=== PATIENT | female | born 1945 | race Caucasian/White ===

== ENCOUNTER 2017-12-28 16:20 | Emergency (ER) | payer MEDICARE, SELFPAY ==
[2017-12-28] VITALS (21 sets, daily range): BP systolic 126–158; BP diastolic 68–87; PULSE 72–89; RESP 11–23; TEMP 37.3; O2SAT 92–100
--- NOTE | 2017-12-28 16:33 | DI.CT_ITS ---
SYMPTOM/DIAGNOSIS: DIARRHEA, NAUSEA, ABD CRAMPING ABDOMEN AND PELVIC CT: CT scan of the abdomen and pelvis was performed following the uneventful administration of intravenous contrast material. There are no priors for comparison. Dependent atelectatic changes are seen in the lung bases. There is a 4 mm. non calcified pulmonary nodule in the left lower lobe. The liver is normal in size. There does appear to be diffuse decreased attenuation of the liver consistent with hepatic steatosis. No hepatic mass is seen. The portal and superior mesenteric veins are patent. There is a 2.7 cm. stone in the gallbladder. No biliary ductal dilatation is seen. The pancreas is unremarkable as are the adrenal glands. There are calcifications seen within the spleen likely reflecting prior granulomatous disease. Spleen is normal in size. The kidneys show normal and symmetric enhancement. No evidence of a solid renal mass or obstruction. The urinary bladder is intact. The reproductive organs are unremarkable as visualized. There is atherosclerosis of the abdominal aorta but no aneurysmal dilatation is seen. No significant abdominal or pelvic adenopathy, ascites or pneumoperitoneum is present. There is no evidence of inflammation. Note is made of a normal appendix. There is a moderate sized hiatal hernia present. No acute fracture is identified. Degenerative changes are seen in the spine. IMPRESSION: 1. No evidence of an acute abdomen. 2. 2.[address] findings to suggest acute cholecystitis. Follow up as clinically appropriate. 3. Moderate sized gastric hiatal hernia. 4. 4 mm. non calcified pulmonary nodule in the left lower lobe. Follow up as clinically appropriate.
--- NOTE | 2017-12-28 16:37 | W.ED.GENAD ---
Discharge Plan Disposition Patient Disposition: HOME Condition: Good Discharge Details Chief Complaint: Abd Prob Clinical Impression: Diarrhea ED Provider: Luis Batista Home Meds and New Rx's Prescriptions: New loperamide 2 mg capsule 2 mg PO Q4H Qty: 10 RF: 0 dicyclomine 10 mg capsule 10 mg PO QID Qty: 8 RF: 0 ondansetron HCl [Zofran] 4 mg tablet 4 mg PO TID PRN (Reason: nausea and vomiting) 5 Days RF: 0 No Action gabapentin 600 mg Tablet 600 mg PO DAILY RF: 0 calcium carbonate [Calcium 600] 600 mg calcium (1,500 mg) Tablet 1,200 mg PO DAILY RF: 0 paroxetine HCl [Paxil] 20 mg Tablet 20 mg PO DAILY RF: 0 simvastatin 20 mg Tablet 20 mg PO QPM RF: 0 omeprazole 20 mg Capsule,Delayed Release(Dr/Ec) 20 mg PO DAILY RF: 0 magnesium 250 mg Tablet 500 mg PO DAILY RF: 0 lskmelyj-xwc-N[place]-lycopen-lutein [Centrum Silver] 0.4-300-250 mg-mcg-mcg Tablet RF: 0 zoledronic kipx-dvdkulja-ivxja [Reclast] 5 mg/100 mL Piggyback See Label Instructions .ROUTE .COMPLEX RF: 0 melatonin 5 mg Tablet 5 mg PO DAILY RF: 0 Discharge Instructions Instructions: Acute Diarrhea (ED) Additional Instructions: Please take the antidiarrheal as directed. Please avoid any spicy or greasy foods. Please drink 8-10 cups of water per day. Please take the nausea medicines as needed. If you notice worsening of your symptoms, please return immediately for reevaluation. If you notice any worsening of your symptoms, or any new symptoms such as vomiting, diarrhea, fever, chills, shortness of breath, chest pain, numbness, weakness, or fainting , please return immediately to the emergency department for reevaluation. Please follow up with your primary care provider as soon as possible for reassessment and reevaluation. As always, it was a pleasure participating in your medical care today. Medical Decision Making This is a 71-year-old female who presents for diarrhea for the last 1-2 days with roughly 4-6 bowel movements per day. They have been nonbloody, she has no red flags of foreign travel recent antibiotic use or other sick contacts or hiking or traveling. Physical exam demonstrates mild crampiness, but no signs of an acute abdomen. Patient denies any red flags of blood in her stool. No vomiting, but notable nausea. Patient did have a near syncopal event when she stood up to go see paramedics earlier today. As of patient's age and symptoms we will get a CT scan to evaluate for any acute process. We will re-hydrate, reevaluate. EKG 16: 24 Rate 78, intervals normal, sinus rhythm, no ST elevations or depressions, no T wave inversions except for V1. Q waves noted in lead III and aVF. No other significant abnormalities 6:[address] scan has returned demonstrates no acute process. She does have a gallstone as well as a hiatal hernia but no other significant abnormalities. Laboratory workup demonstrates no bandemia or leukocytosis, patient's troponin, bilirubin, AST and ALT are within normal limits. Patient is feeling much better at this time. I do feel that she has a mild gastroenteritis as the cause of her symptoms. She feels significantly improved at this time. Feel that she can be safely discharged home with an antidiarrheal. We discussed red flags which to return and the patient understands. I have extensively reviewed the treatment plan and discharge instructions with the patient. I have addressed all patient concerns at this time. The patient was made aware of what symptoms to monitor for that would warrant a return to the emergency department. Discussed the plan with the patient, they demonstrate verbal understanding and agreement with our assessment and plan at this time. IMPRESSION: 1. Small to moderate sized gastric hiatal hernia. 2. Single large 2.7 cm gallstone visualized in the gallbladder. No evidence of acute cholecystitis. 3. Other chronic findings as above. Dictated and Authenticated by: Pan Gilbert MD. HPI General Date/Time Provider Initiated Documentation: 12/28/17 16:33. HPI Narrative: This is a 71-year-old female with a past medical history of fibromyalgia, tubal ligation to me, no other significant problems who presents today for evaluation of nausea and diarrhea. Patient states that for the last 1-2 days she has had nausea, diarrhea, with up to 6-7 loose bowel movements per day. Bowel movements are watery, nonbloody. She has had mild abdominal cramping and nausea but no severe abdominal pain. She denies any blood in her stools. She denies any recent foreign travel, antibiotic use, other sick contacts, or previous history of diarrhea. Last time the patient ate was last night. Patient has not taken any medications at home to improve her symptoms. She is only been eating normal food, no atypical food. Also of note the patient states that she has not been able to drink much, and when EMS arrived today she stood up quickly to go see them, however she got very lightheaded when this occurred. She had no complete syncopal episode, but she did have to sit down. She denied any headache, or other symptoms. Patient denies any other complications or symptoms. No other modifying factors. She denies any pertinent family history. Denies IV or illicit drug use. Related Data Home Medications Medication Instructions Recorded Confirmed calcium carbonate [Calcium 600] 1,200 mg PO DAILY 12/28/17 12/28/17 dicyclomine 10 mg PO QID #8 cap 12/28/17 gabapentin 600 mg PO DAILY 12/28/17 12/28/17 loperamide 2 mg PO Q4H #10 cap 12/28/17 magnesium 500 mg PO DAILY 12/28/17 12/28/17 melatonin 5 mg PO DAILY 12/28/17 12/28/17 egrlvsvg-xtj-AI-lycopen-lutein 12/28/17 [Centrum Silver] omeprazole 20 mg PO DAILY 12/28/17 12/28/17 ondansetron HCl [Zofran] 4 mg PO TID PRN 5 Days tab 12/28/17 paroxetine HCl [Paxil] 20 mg PO DAILY 12/28/17 12/28/17 simvastatin 20 mg PO QPM 12/28/17 12/28/17 zoledronic snrr-emhwcuoy-cubwq See Label Instructions .ROUTE 12/28/17 12/28/17 [Reclast] .COMPLEX Previous Rx's Medication Instructions Recorded dicyclomine 10 mg PO QID #8 cap 12/28/17 loperamide 2 mg PO Q4H #10 cap 12/28/17 ondansetron HCl [Zofran] 4 mg PO TID PRN 5 Days tab 12/28/17 Allergies Allergy/AdvReac Type Severity Reaction Status Date / Time No Known Allergies Allergy Unverified 12/28/17 16:25 General Stated Complaint: Abd Prob AMBAR: 3 Review of Systems Review of Systems All systems reviewed & are unremarkable except as noted in HPI and below PFSH Social History Smoking/Tobacco Use Status: Never Exam Narrative Exam Narrative: 1.Const: Well-nourished, Well-developed, appearing stated age 2.Eyes: PERRL, no conjunctival injection, and symmetrical lids. 3.ENT: Atraumatic external nose and ears. Notably dry MM. Neck: Symmetric, trachea midline, No thyromegaly. 4.CVS: +S1/S2, No murmurs or gallops. Peripheral pulses 2+ and equal in all extremities. Brisk capillary refill in all extremities. 5.RESP: Unlabored respiratory effort. Clear to auscultation bilaterally. No wheezes rales or rhonchi 6.GI: Soft, bowel sounds are present, no guarding or rebound, mild generalized crampiness throughout. No pain at McBurney's point, negative James sign. No signs of an acute abdomen. 7.MSK: Normocephalic/Atraumatic, Extremities w/o deformity or ttp No cyanosis or clubbing, Normal movement of all extremities 8.Skin: Warm, Dry. No rashes or lesions. 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 Sensation grossly intact, no focal neurologic deficits. 10.Psych: (AAO) x3. Appropriate mood and affect Course Vital Signs Temperature 37.3 C 12/28/17 16:21 Pulse 81 12/28/17 16:21 Respiratory Rate 14 12/28/17 16:21 Blood Pressure 158/83 H 12/28/17 16:21 Pulse Oximetry 97 12/28/17 16:21 Temperature 37.3 C 12/28/17 16:21 Temperature Source Temporal Artery Scan 12/28/17 16:21 Pulse 81 12/28/17 16:21 Respiratory Rate 14 12/28/17 16:21 Respiratory Effort 12/28/17 16:29 Blood Pressure 158/83 H 12/28/17 16:21 Blood Pressure Position Sitting 12/28/17 16:21 Pulse Oximetry 97 12/28/17 16:21 Oxygen Delivery Method Room Air 12/28/17 16:21 Oxygen Flow Rate 0 12/28/17 16:21 Pain Level 0 12/28/17 16:21 Comment 12/28/17 16:21
[2017-12-28] MEDS: Ondansetron 4 MG/2 ML VIAL IVP (16:43)
[2017-12-28] MEDS: Normal Saline 1,000 ML 1000 ML IV (16:43)
--- NOTE | 2017-12-28 16:43 | ED.GENADUL_ITS ---
Discharge Plan Disposition Patient Disposition: HOME Condition: Good Discharge Details Chief Complaint: Abd Prob Clinical Impression: Diarrhea ED Provider: Luis Batista Home Meds and New Rx's Prescriptions: New loperamide 2 mg capsule 2 mg PO Q4H Qty: 10 RF: 0 dicyclomine 10 mg capsule 10 mg PO QID Qty: 8 RF: 0 ondansetron HCl [Zofran] 4 mg tablet 4 mg PO TID PRN (Reason: nausea and vomiting) 5 Days RF: 0 No Action gabapentin 600 mg Tablet 600 mg PO DAILY RF: 0 calcium carbonate [Calcium 600] 600 mg calcium (1,500 mg) Tablet 1,200 mg PO DAILY RF: 0 paroxetine HCl [Paxil] 20 mg Tablet 20 mg PO DAILY RF: 0 simvastatin 20 mg Tablet 20 mg PO QPM RF: 0 omeprazole 20 mg Capsule,Delayed Release(Dr/Ec) 20 mg PO DAILY RF: 0 magnesium 250 mg Tablet 500 mg PO DAILY RF: 0 govfldoi-icy-XC-lycopen-lutein [Centrum Silver] 0.4-300-250 mg-mcg-mcg Tablet RF: 0 zoledronic smaq-pivvamlc-fjqmu [Reclast] 5 mg/100 mL Piggyback See Label Instructions .ROUTE .COMPLEX RF: 0 melatonin 5 mg Tablet 5 mg PO DAILY RF: 0 Discharge Instructions Instructions: Acute Diarrhea (ED) Additional Instructions: Please take the antidiarrheal as directed. Please avoid any spicy or greasy foods. Please drink 8-10 cups of water per day. Please take the nausea medicines as needed. If you notice worsening of your symptoms, please return immediately for reevaluation. If you notice any worsening of your symptoms, or any new symptoms such as vomiting, diarrhea, fever, chills, shortness of breath , chest pain, numbness, weakness, or fainting , please return immediately to the emergency department for reevaluation. Please follow up with your primary care provider as soon as possible for reassessment and reevaluation. As always, it was a pleasure participating in your medical care today. Medical Decision Making This is a 71-year-old female who presents for diarrhea for the last 1- 2 days with roughly 4-6 bowel movements per day. They have been nonbloody, she has no red flags of foreign travel recent antibiotic use or other sick contacts or hiking or traveling. Physical exam demonstrates mild crampiness, but no signs of an acute abdomen. Patient denies any red flags of blood in her stool. No vomiting, but notable nausea. Patient did have a near syncopal event when she stood up to go see paramedics earlier today. As of patient's age and symptoms we will get a CT scan to evaluate for any acute process. We will re- hydrate, reevaluate. EKG 16: 24 Rate 78, intervals normal, sinus rhythm, no ST elevations or depressions, no T wave inversions except for V1. Q waves noted in lead III and aVF. No other significant abnormalities 6:[address] scan has returned demonstrates no acute process. She does have a gallstone as well as a hiatal hernia but no other significant abnormalities. Laboratory workup demonstrates no bandemia or leukocytosis, patient's troponin, bilirubin, AST and ALT are within normal limits. Patient is feeling much better at this time. I do feel that she has a mild gastroenteritis as the cause of her symptoms. She feels significantly improved at this time. Feel that she can be safely discharged home with an antidiarrheal. We discussed red flags which to return and the patient understands. I have extensively reviewed the treatment plan and discharge instructions with the patient. I have addressed all patient concerns at this time. The patient was made aware of what symptoms to monitor for that would warrant a return to the emergency department. Discussed the plan with the patient, they demonstrate verbal understanding and agreement with our assessment and plan at this time. IMPRESSION: 1. Small to moderate sized gastric hiatal hernia. 2. Single large 2.7 cm gallstone visualized in the gallbladder. No evidence of acute cholecystitis. 3. Other chronic findings as above. Dictated and Authenticated by: Pan Gilbert MD. HPI General Date/Time Provider Initiated Documentation: 12/28/17 16:33 . HPI Narrative: This is a 71-year-old female with a past medical history of fibromyalgia, tubal ligation to me, no other significant problems who presents today for evaluation of nausea and diarrhea. Patient states that for the last 1-2 days she has had nausea, diarrhea, with up to 6-7 loose bowel movements per day. Bowel movements are watery, nonbloody. She has had mild abdominal cramping and nausea but no severe abdominal pain. She denies any blood in her stools. She denies any recent foreign travel, antibiotic use, other sick contacts, or previous history of diarrhea. Last time the patient ate was last night. Patient has not taken any medications at home to improve her symptoms. She is only been eating normal food, no atypical food. Also of note the patient states that she has not been able to drink much, and when EMS arrived today she stood up quickly to go see them, however she got very lightheaded when this occurred. She had no complete syncopal episode, but she did have to sit down. She denied any headache, or other symptoms. Patient denies any other complications or symptoms. No other modifying factors. She denies any pertinent family history. Denies IV or illicit drug use. Related Data Home Medications Medication Instructions Recorded Confirmed calcium carbonate [Calcium 600] 1,200 mg PO DAILY 12/28/17 12/28/17 dicyclomine 10 mg PO QID #8 cap 12/28/17 gabapentin 600 mg PO DAILY 12/28/17 12/28/17 loperamide 2 mg PO Q4H #10 cap 12/28/17 magnesium 500 mg PO DAILY 12/28/17 12/28/17 melatonin 5 mg PO DAILY 12/28/17 12/28/17 mnxgckbc-lws-PU-lycopen-lutein 12/28/17 [Centrum Silver] omeprazole 20 mg PO DAILY 12/28/17 12/28/17 ondansetron HCl [Zofran] 4 mg PO TID PRN 5 Days tab 12/28/17 paroxetine HCl [Paxil] 20 mg PO DAILY 12/28/17 12/28/17 simvastatin 20 mg PO QPM 12/28/17 12/28/17 zoledronic jrvf-rubmjrlr-xjhif See Label Instructions .ROUTE 12/28/17 12/28/17 [Reclast] .COMPLEX Previous Rx's Medication Instructions Recorded dicyclomine 10 mg PO QID #8 cap 12/28/17 loperamide 2 mg PO Q4H #10 cap 12/28/17 ondansetron HCl [Zofran] 4 mg PO TID PRN 5 Days tab 12/28/17 Allergies Allergy/AdvReac Type Severity Reaction Status Date / Time No Known Allergies Allergy Unverified 12/28/17 16:25 General Stated Complaint: Abd Prob AMBAR: 3 Review of Systems Review of Systems All systems reviewed & are unremarkable except as noted in HPI and below PFSH Social History Smoking/Tobacco Use Status: Never Exam Narrative Exam Narrative: 1.Const: Well-nourished, Well-developed, appearing stated age 2.Eyes: PERRL, no conjunctival injection, and symmetrical lids. 3.ENT: Atraumatic external nose and ears. Notably dry MM. Neck: Symmetric, trachea midline, No thyromegaly. 4.CVS: +S1/S2, No murmurs or gallops. Peripheral pulses 2+ and equal in all extremities. Brisk capillary refill in all extremities. 5.RESP: Unlabored respiratory effort. Clear to auscultation bilaterally. No wheezes rales or rhonchi 6.GI: Soft, bowel sounds are present, no guarding or rebound, mild generalized crampiness throughout. No pain at McBurney's point, negative James sign. No signs of an acute abdomen. 7.MSK: Normocephalic/Atraumatic, Extremities w/o deformity or ttp No cyanosis or clubbing, Normal movement of all extremities 8.Skin: Warm, Dry. No rashes or lesions. 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 Sensation grossly intact, no focal neurologic deficits. 10.Psych: (AAO) x3. Appropriate mood and affect Course Vital Signs Temperature 37.3 C 12/28/17 16:21 Pulse 81 12/28/17 16:21 Respiratory Rate 14 12/28/17 16:21 Blood Pressure 158/83 H 12/28/17 16:21 Pulse Oximetry 97 12/28/17 16:21 Temperature 37.3 C 12/28/17 16:21 Temperature Source Temporal Artery Scan 12/28/17 16:21 Pulse 81 12/28/17 16:21 Respiratory Rate 14 12/28/17 16:21 Respiratory Effort 12/28/17 16:29 Blood Pressure 158/83 H 12/28/17 16:21 Blood Pressure Position Sitting 12/28/17 16:21 Pulse Oximetry 97 12/28/17 16:21 Oxygen Delivery Method Room Air 12/28/17 16:21 Oxygen Flow Rate 0 12/28/17 16:21 Pain Level 0 12/28/17 16:21 Comment 12/28/17 16:21
[2017-12-28 16:44] LABS: Abs Immature Grans 0.03 k/cumm (0.0-0.09); Absolute Basophil Count 0.03 k/cumm (0.0-0.2); Absolute Eosinophil Count 0.05 k/cumm (0.0-0.7); Absolute Monocyte Count 0.88 k/cumm (0.11-0.7); Absolute Neutrophil Count 7.52 k/cumm (1.2-6.7); Basophils % 0.3; Eosinophils % 0.5; HCT 49.1 % (36.0-46.0); HGB 16.8 g/dL (12.0-15.5); Immature Grans % 0.3; Lymphocytes % 16.7; Mean Corp. HGB Concentration 34.2 g/dL (32.0-36.0); Mean Corpuscular Hemoglobin 31.1 pg (27.0-33.0); Mean Corpuscular Volume 90.8 fL (80-95); Monocytes % 8.6; Neutrophils % 73.6; Platelet Count 313 x1000/uL (130-400); RBC 5.41 m/cumm (4.00-5.20); RBC Distribution Width 13.8 % (11.7-14.6); White Blood Cell Count 10.21 k/cumm (4.4-10.8)
[2017-12-28 17:23] LABS: ALT 42 U/L (12-78); AST 23 U/L (15-37); Albumin 4.3 g/dL (3.4-5.0); Alkaline Phosphatase 122 U/L (46-116); Anion Gap 11.2 mmol/L (3-11); BUN 14 mg/dL (7-18); Bilirubin, Total 0.4 mg/dL (0.2-1.0); CO2 26.8 mmol/L (21.0-32.0); CREATININE 0.75 mg/dL (0.55-1.02); Calcium 9.7 mg/dL (8.5-10.1); Chloride 104 mmol/L (98-107); Glucose 114 mg/dL (70-100); Lipase 120 U/L (73-393); Potassium 3.8 mmol/L (3.5-5.1); Sodium 142 mmol/L (136-145); Total Protein 7.7 g/dL (6.4-8.2)
[2017-12-28] MEDS: Omnipaque 350 MG/ML 100 ML BTL IV (17:24)
[2017-12-28 17:25] LABS: Troponin I < 0.02 ng/mL (0.00-0.06)
[2017-12-28] MEDS: Metoclopramide 10 MG/2 ML VIAL IVP (17:33)
--- NOTE | 2017-12-28 18:00 | DI.VRAD_ITS ---
EXAM: CT Abdomen and Pelvis With Intravenous Contrast EXAM DATE/TIME: 12/28/2017 4:37 PM CLINICAL HISTORY: 71 years old, female; Signs and symptoms; Other: Diarrhea, nausea, generalized abd cramping TECHNIQUE: Axial computed tomography images of the abdomen and pelvis with intravenous contrast. All CT scans at this facility use at least one of these dose optimization techniques: automated exposure control; mA and/or kV adjustment per patient size (includes targeted exams where dose is matched to clinical indication); or iterative reconstruction. Coronal and sagittal reformatted images were created and reviewed. CONTRAST: 100 ml of omnipaque 350 administered intravenously. COMPARISON: No relevant prior studies available. FINDINGS: Lower thorax: Mild bibasilar dependent atelectasis of the lung bases. ABDOMEN: Liver: Diffuse hepatic steatosis. Gallbladder and bile ducts: Single large 2.7 cm gallstone visualized in the gallbladder. No evidence of acute cholecystitis. Pancreas: Normal. No ductal dilation. Spleen: Normal. No splenomegaly. Adrenals: Normal. No mass. Kidneys and ureters: Normal. No hydronephrosis. Stomach and bowel: Small to moderate sized gastric hiatal hernia. No obstruction. No mucosal thickening. Appendix: No evidence of appendicitis. PELVIS: Bladder: Unremarkable as visualized. Reproductive: Unremarkable as visualized. ABDOMEN and PELVIS: Intraperitoneal space: Normal. No free air. No significant fluid collection. Bones/joints: No acute fracture. No dislocation. Soft tissues: Unremarkable. Vasculature: Atherosclerotic calcifications of the aorta and major branches. Lymph nodes: Normal. No enlarged lymph nodes. IMPRESSION: 1. Small to moderate sized gastric hiatal hernia. 2. Single large 2.7 cm gallstone visualized in the gallbladder. No evidence of acute cholecystitis. 3. Other chronic findings as above. Dictated and Authenticated by: Pan Gilbert MD. Ordering:GIL KRUEGER MD
== END 2017-12-28 18:46 | disposition home or self-care (01) ==
LOC: ER 12-29 16:27
PROVIDERS: Emergency Provider Student in an Organized Health Care Education/Training Program; PCP Family Medicine
DX: R19.7 Diarrhea, unspecified (principal); R42 Dizziness and giddiness; K44.9 Diaphragmatic hernia without obstruction or gangrene; K80.20 Calculus of gallbladder without cholecystitis without obstruction
CPT/HCPCS: 36415; 80053; 83690; 93005; 96361; 96374; 96375; 99285; 74177; 84484; 85025; 93010; J2405; J3490